=== PATIENT | female | born 1955 | race Hispanic/Latino ===

== ENCOUNTER 2017-09-27 08:35 | Outpatient (CLI) | payer BC ==
--- NOTE | 2017-09-28 10:07 | Mammography Report ---
BILATERAL DIGITAL SCREENING MAMMOGRAM with CAD: 09/27/17 08:35:00 CLINICAL: Routine screening. COMPARISON:09/26/16 FINDINGS: The breasts are heterogeneously dense, which may obscure small masses. No mass, architectural distortion or suspicious calcifications. IMPRESSION: No mammographic evidence of malignancy. BI-RADS CATEGORY: 1 - - Negative RECOMMENDATION: Routine mammographic screening in one year. COMMENT: Patient follow-up letters are generated by our [email or web address] application.
== END 2017-09-27 08:36 | disposition home or self-care (01) ==
LOC: SPVWC 08:35
PROVIDERS: ATTEND Internal Medicine
DX: Z12.31 Encounter for screening mammogram for malignant neoplasm of breast (principal); I10 Essential (primary) hypertension; E78.00 Pure hypercholesterolemia, unspecified
CPT/HCPCS: 77067; G0202

== ENCOUNTER 2018-10-09 08:07 | Outpatient (CLI) | payer BC ==
--- NOTE | 2018-10-09 11:32 | Mammography Report ---
BONE DEXA:10/09/18 08:07:00 CLINICAL: Postmenopausal. COMPARISON: 09/26/16, 09/21/14, 09/20/12 and 07/28/10 TECHNIQUE: Two site bone DEXA performed on an Hologic scanner. FINDINGS: The average BMD of the lumbar spine L1-L4 is 0.847g/cm squared with a T-score of -1.8 and a Z-score of -0.1. This compares to 0.874g/cm squared on the last exam and represents a -3.1% change from the previous study and a -4.0% change from baseline. The average BMD of the left hip is 0.802g/cm squared with a T-score of -1.2 and a Z-score of +0.1. This compares to 0.868g/cm squared on the last exam and represents a -7.6% change from the previous study and a -5.5% change from baseline. IMPRESSION: 1. WHO classification: Osteopenia with increased fracture risk based on both L-spine and left hip measurements. 2. A moderate decline in both spine and left hip BMD compared to previous studies. RECOMMENDATION: Clinical correlation and routine screening. DEFINITIONS: BMD = Bone Mineral Density T-score = BMD related to mean peak bone mass of young adult (mean expressed in Standard Deviation) Z-score = Age matched BMD expressed in SD World Health Organization (WHO) Diagnostic Criteria Normal T-score > -1 SD Osteopenia T-score between -1 and -2.4 SD Osteoporosis T-score -2.5 SD or below NOTE: BMD is not the only risk factor for fracture; also consider factors such as the patient's age, risk of falling, previous osteoporotic fracture, family history of osteoporotic fractures, current smoker, and low body weight. Z-scores are not calculated if >80 years of age.
--- NOTE | 2018-10-09 11:47 | Mammography Report ---
BILATERAL DIGITAL SCREENING MAMMOGRAM with CAD: 10/09/18 08:07:00 CLINICAL: Routine screening. COMPARISON:09/27/17 FINDINGS: The breasts are heterogeneously dense, which may obscure small masses. No mass, architectural distortion or suspicious calcifications. IMPRESSION: No mammographic evidence of malignancy. BI-RADS CATEGORY: 1 - - Negative RECOMMENDATION: Routine mammographic screening in one year. COMMENT: Patient follow-up letters are generated by our [employer] application.
== END 2018-10-09 08:08 | disposition home or self-care (01) ==
LOC: SPVWC 08:07
PROVIDERS: ATTEND Internal Medicine
DX: Z12.31 Encounter for screening mammogram for malignant neoplasm of breast (principal); M85.88 Other specified disorders of bone density and structure, other site; E78.00 Pure hypercholesterolemia, unspecified; I10 Essential (primary) hypertension; K21.9 Gastro-esophageal reflux disease without esophagitis; M19.90 Unspecified osteoarthritis, unspecified site; Z78.0 Asymptomatic menopausal state; Z90.710 Acquired absence of both cervix and uterus
CPT/HCPCS: 77067; 77080

== ENCOUNTER 2019-11-11 06:30 | Day surgery (SDC) | payer MEDICARE ==
[2019-11-11] MEDS ORDERED: ASPIRIN EC 325 MG TAB PO NR (07:07)
[2019-11-11] MEDS: SODIUM CHLORIDE 0.9% 500 ML 500 ML IV SCH ×2 (07:53→08:45)
[2019-11-11 07:59] LABS: Basophils # (Auto) 0.1 K/mm3 (0.0-0.1); Basophils % (Auto) 0.7 % (0.0-1.8); Eosinophils # (Auto) 0.1 K/mm3 (0.0-0.4); Eosinophils % (Auto) 0.6 % (0.0-4.3); Hematocrit 39.4 % (30.3-42.9); Hemoglobin 13.5 gm/dl (10.1-14.3); Lymphocytes # (Auto) 1.9 K/mm3 (1.2-5.4); Lymphocytes % (Auto) 15.9 % (13.4-35.0); Mean Corpuscular HGB Conc 34 % (30-34); Mean Corpuscular Volume 86 fl (79-97); Monocytes # (Auto) 0.6 K/mm3 (0.0-0.8); Platelet Count 256 K/mm3 (140-440); Red Blood Count 4.57 M/mm3 (3.65-5.03); Red Cell Distribution Width 12.9 % (13.2-15.2)
[2019-11-11] MEDS ORDERED: MIDAZOLAM 2 MG/2 ML INJ ONE (08:02)
[2019-11-11] MEDS ORDERED: fentaNYL 100 MCG/2 ML INJ ONE (08:02)
[2019-11-11] MEDS ORDERED: HEPARIN 10,000 UNITS/10 ML VIAL ONE (08:02)
[2019-11-11] MEDS ORDERED: HEPARIN/NS 5000 UNIT/500ML 1,000 ML IR ONE (08:02)
[2019-11-11] MEDS ORDERED: VERAPAMIL 5 MG/2 ML INJ ONE (08:03)
[2019-11-11] MEDS ORDERED: NITROGLYCERIN SYRINGE 3 ML ONE (08:03)
[2019-11-11] MEDS ORDERED: LIDOCAINE (2%) 20 MG/1 ML VIAL 20 ML MDV INFILTRATI ONE (08:03)
[2019-11-11 08:15] LABS: INR 0.97 (0.87-1.13)
[2019-11-11 08:28] LABS: BUN/Creatinine Ratio 21; Blood Urea Nitrogen 17 mg/dL (7-17); Hemolysis Index 7
[2019-11-11] MEDS ORDERED: traMADol 50 MG TAB PO PRN (09:19)
--- NOTE | 2019-11-11 09:23 | Short Stay Summary ---
Short Stay Documentation Date of service: 11/11/19 - History H&P: obtained from office - Allergies and Medications Current Medications: Allergies sulfamethoxazole [From Bactrim] Adverse Reaction (Verified 11/11/19 07:55) Nausea trimethoprim [From Bactrim] Adverse Reaction (Verified 11/11/19 07:55) Nausea Home Medications Medication Instructions Recorded Confirmed Last Taken Type Lisinopril/Hydrochlorothiazide 1 tab PO BID 06/11/14 06/18/14 11/10/19 History [Zestoretic 20-12.5 mg] 1 tab Omeprazole [PriLOSEC] 40 mg PO QDAY 06/11/14 11/11/19 11/10/19 History 40 mg Raloxifene HCl [Evista] 60 mg PO QDAY 06/11/14 11/11/19 11/10/19 History 60 mg atenoloL [Tenormin] 25 mg PO DAILY 06/11/14 11/11/19 11/10/19 History 25 mg Cholecalciferol (Vitamin D3) 1 tab PO DAILY 06/18/14 11/11/19 11/09/19 History [Vitamin D3] 1 tab Cyanocobalamin [Vitamin B-12] 1 tab PO DAILY 06/18/14 11/11/19 11/08/19 History 1 tab Lactobacillus Acidophilus 1 tab PO DAILY 06/18/14 11/11/19 11/01/19 History [Acidophilus] 1 tab AtorvaSTATin [Lipitor] 40 mg PO HS 11/11/19 11/11/19 11/10/19 History 40 mg Ezetimibe [Zetia] 10 mg PO HS 11/11/19 11/11/19 11/10/19 History 10 mg Gluco/Chondr/MSM/D3/C/FA/Hb287 1 tab PO DAILY 11/11/19 11/11/19 11/10/19 History [Algesis Tablet] 1 cap ISOSORBIDE MONOnitrate [Imdur ER] 30 mg PO DAILY 11/11/19 11/11/19 11/10/19 History 30 mg Magnesium 500 mg PO DAILY 11/11/19 11/11/19 11/10/19 History 500 mg Mv,Cory,Min/Iron/Folic Acid/Lut 1 tab PO DAILY 11/11/19 11/11/19 11/10/19 History [Complete Multi Tablet] 1 tab Active Medications Aspirin (Ecotrin) 325 mg PO ONCE NR Stop: 11/11/19 10:00 Last Admin: 11/11/19 07:53 Dose: 325 mg Documented by: Sodium Chloride (Nacl 0.9% 500 Ml) 500 mls @ 50 mls/hr IV DIRECT RACQUEL Stop: 11/11/19 17:59 Last Admin: 11/11/19 08:45 Dose: 50 mls/hr Documented by: Tramadol HCl (Ultram) 50 mg PO Q4H PRN PRN Reason: Pain, Mild (1-3) - Brief post op/procedure progress note Date of procedure: 11/11/19 Pre-op diagnosis: cp Post-op diagnosis: same Procedure: see report , normal coronaries and normal lv function Anesthesia: local Estimated blood loss: none Pathology: none - Disposition Condition at discharge: Good Disposition: [id number] TO HOME OR SELFCARE - Discharge Diagnoses (1) Chest pain Status: Chronic Qualifiers: Chest pain type: unspecified Qualified Code(s): R07.9 - Chest pain, unspecified (2) Hypertension Status: Chronic Qualifiers: Hypertension type: essential hypertension Qualified Code(s): I10 - Essential (primary) hypertension (3) Hyperlipemia, mixed Status: Chronic Short Stay Discharge Plan Activity: advance as tolerated Diet: low fat, low cholesterol, low salt Wound: keep clean and dry Follow up with: SASHA MORALES JR, MD [Primary Care Provider] - 7 Days
--- NOTE | 2019-11-11 09:28 | Cardiac Catherization Report ---
LEFT HEART CATHETERIZATION PRIMARY CARE: Dr. Wyatt. CLINICAL INFORMATION: This is a 64-year-old female having chest pain with exertion, had a negative stress test despite having recurrent symptoms and the patient is being treated with isosorbide with improvement. Doing the left heart catheterization for suspected coronary arterial disease. The patient has hypertension and hyperlipidemia, on beta delgado therapy. DESCRIPTION OF PROCEDURE: Procedure was done with moderate sedation, 50 minutes of moderate sedation, start 8:55 a.m. and finished at 09:00 a.m. Procedure was done via the right radial artery, sterile technique, local anesthesia, 6-Mauritian radial sheath inserted with following findings: Left main is a large caliber vessel, small patent, bifurcates into large caliber LAD that is patent with moderate tortuosity. Diagonal 1, diagonal 2 are small to medium caliber vessel, patent. Circumflex is a large dominant vessel, patent AV groove. OM1, OM2, OM3 are medium caliber vessel, patent with moderate tortuosity. LPDA is a small to medium caliber and patent. RCA is a small nondominant vessel, patent. LV gram done in INDIAN and PARADA view shows normal LV function, EF 55-60%. LVEDP 14 mmHg, LV is 155. Aortic is 153/80. No gradient across the aortic valve on pullback. 5-Mauritian catheters all taken over guidewire, 6-Mauritian radial sheath was discontinued. Radial band applied. No hematoma, no bleeding. SUMMARY: 1. Left main patent, LAD patent with moderate tortuosity. Diagonal 1, diagonal 2 patent, circumflex large, dominant, patent, OM1, OM2 and OM3 medium caliber vessel, patent. LPDA is small to medium caliber and patent. RCA small, nondominant, and patent with normal LV function. 2. Continue medical management for risk factors and post left heart catheterization. JOB# [id number] TK/NTS
[2019-11-11 12:02] VITALS: BP 134/63
== END 2019-11-11 12:38 | disposition home or self-care (01) ==
LOC: CATHLABREC 06:30
PROVIDERS: ATTEND Internal Medicine
DX: R07.89 Other chest pain (principal); R06.02 Shortness of breath; I10 Essential (primary) hypertension; H40.9 Unspecified glaucoma; K21.9 Gastro-esophageal reflux disease without esophagitis; E78.00 Pure hypercholesterolemia, unspecified; M81.0 Age-related osteoporosis without current pathological fracture; M19.90 Unspecified osteoarthritis, unspecified site; Z88.1 Allergy status to other antibiotic agents; Z88.2 Allergy status to sulfonamides; Z79.899 Other long term (current) drug therapy; Z82.49 Family history of ischemic heart disease and other diseases of the circulatory system; Z90.710 Acquired absence of both cervix and uterus; Z98.890 Other specified postprocedural states
CPT/HCPCS: 36415; 80048; 85025; 85610; 85730; 93005; 93010; 93458; C1894; J1644; J2250; J3010; J7040; Q9967

== ENCOUNTER 2021-07-06 08:48 | Outpatient (CLI) | payer MEDICARE, BC ==
--- NOTE | 2021-07-06 15:23 | Mammography Report ---
DIGITAL SCREENING MAMMOGRAM WITH CAD, 07/06/2021 CLINICAL INFORMATION / INDICATION: Routine screening mammography. SCREENING MAMMO Z12.31 TECHNIQUE: Digital bilateral 2D mammography was obtained in the craniocaudal and mediolateral obliqu e projections. This examination was interpreted with the benefit of Computer-Aided Detection analysis . COMPARISON: 10/09/2018 FINDINGS: Breast Density: There are scattered areas of fibroglandular density. No dominant mass, suspicious calcifications, or architectural distortion in either breast. IMPRESSION: No mammographic evidence of malignancy. Follow up recommendation: Routine yearly BI-RADS Category 1: Negative. A "normal" or negative report should not discourage follow up or biopsy of a clinically significant f inding. A written summary of these findings will be mailed to the patient. The patient will be entered into a mammography reporting system which will generate a reminder letter for the patient's next appointmen t at the appropriate interval. The [employer] recommends yearly mammograms starting at age 40 and continuing as l tori as a woman is in good health. Breast MRI is recommended for women with an approximate 20-25% or greater lifetime risk of breast cancer, including women with a strong family history of breast or ova [place] cancer or who have been treated for Hodgkin's disease. Signer Name: Juan Keller MD Signed: 07/06/2021 3:18 PM Workstation Name: [id number]
== END 2021-07-06 08:49 | disposition home or self-care (01) ==
LOC: SPVWC 08:48
PROVIDERS: ATTEND Internal Medicine
DX: Z12.31 Encounter for screening mammogram for malignant neoplasm of breast (principal)
CPT/HCPCS: 77067